=== PATIENT | male | born 1960 | race Hispanic/Latino ===

== ENCOUNTER 2021-12-18 12:05 | Outpatient (CLI) | payer OTHER | END 2021-12-18 12:06 | disposition home or self-care (01) | LOC: NAV RAD 12:05 | PROVIDERS: ATTEND Family Medicine | DX: S82.101A Unspecified fracture of upper end of right tibia, initial encounter for closed fracture (principal); S82.831A Other fracture of upper and lower end of right fibula, initial encounter for closed fracture ==